=== PATIENT | female | born 1955 | race Caucasian/White ===

== ENCOUNTER 2020-06-26 13:31 | Outpatient (REF) | payer MEDICARE, SELFPAY ==
--- NOTE | 2020-06-26 13:35 | XR_ITS ---
EXAMINATION: AP BILATERAL KNEES STANDING. RIGHT KNEE. CLINICAL INFORMATION: Pain in right knee. COMPARISON: None TECHNIQUE: AP bilateral knees standing 1 view. Right knee 2 views FINDINGS: AP BILATERAL KNEE: There is a total left knee prosthesis in satisfactory alignment. Loss of medial and lateral compartment joint space is seen. RIGHT KNEE: There is loss of tricompartment joint space with mild lateral patellar spurring. There are no loose bodies, joint effusion or bony erosive changes. The soft tissues are normal. XR/XR knee RT 2V IMPRESSION: Mild degenerative changes right knee with periarticular spurring. No joint effusion or loose body seen. Total left knee arthroplasty in satisfactory alignment.
--- NOTE | 2020-06-26 13:35 | XR_ITS ---
EXAMINATION: AP BILATERAL KNEES STANDING. RIGHT KNEE. CLINICAL INFORMATION: Pain in right knee. COMPARISON: None TECHNIQUE: AP bilateral knees standing 1 view. Right knee 2 views FINDINGS: AP BILATERAL KNEE: There is a total left knee prosthesis in satisfactory alignment. Loss of medial and lateral compartment joint space is seen. RIGHT KNEE: There is loss of tricompartment joint space with mild lateral patellar spurring. There are no loose bodies, joint effusion or bony erosive changes. The soft tissues are normal. XR/XR knee standing BI IMPRESSION: Mild degenerative changes right knee with periarticular spurring. No joint effusion or loose body seen. Total left knee arthroplasty in satisfactory alignment.
== END 2020-06-26 13:32 | disposition home or self-care (01) ==
LOC: HO.XRAY 13:31
PROVIDERS: PCP Internal Medicine; Referring Provider Internal Medicine; Visit Provider Orthopaedic Surgery
DX: M17.11 Unilateral primary osteoarthritis, right knee (principal); M25.561 Pain in right knee
CPT/HCPCS: 20610; 73560; 73565; 99202; 99204; 99212; J1040

== ENCOUNTER → 2020-07-31 09:48 | Outpatient (BNVA) | payer MEDICARE, SELFPAY | PROVIDERS: Visit Provider Orthopaedic Surgery | DX: M17.11 Unilateral primary osteoarthritis, right knee (principal); I10 Essential (primary) hypertension | CPT/HCPCS: 99212 ==

== ENCOUNTER 2020-08-29 09:02 | Outpatient (REF) | payer MEDICARE, SELFPAY ==
--- NOTE | 2020-08-29 09:39 | ECG_ITS ---
Test Reason : CP Blood Pressure : / mmHG Vent. Rate : 063 BPM Atrial Rate : 063 BPM P-R Int : 198 ms QRS Dur : 080 ms QT Int : 430 ms P-R-T Axes : 049 021 016 degrees QTc Int : 440 ms Sinus rhythm with sinus arrhythmia with occasional Premature ventricular complexes Otherwise normal ECG No previous ECGs available Referred By: Delbert Pace Electronically Signed By:SERGIO DILLARD
[2020-08-29 10:11] LABS: MANUAL DIFF FLAG NO
[2020-08-29 10:23] LABS: Basophils Absolute Auto 0.1 X10*3/uL (0.0-0.2); Basophils Percent Auto 1.1 % (0-2); Eosinophils Absolute Auto 0.2 X10*3/uL (0.0-0.4); Eosinophils Percent Auto 2.1 % (0-4); Hematocrit 38.8 % (37-47); Hemoglobin 12.8 g/dl (12.0-16.0); Imm Gran Abs Auto 0.04 X10*3/uL (0.00-0.03); Imm Gran Pct Auto 0.5 % (0.0-0.4); Lymphocytes Absolute Auto 1.8 X10*3/uL (1.2-4.9); Lymphocytes Percent Auto 23.5 % (20-40); Mean Corpuscular Hemoglobin 32.2 pg (27.0-33.0); Mean Corpuscular Volume 97.5 fL (80-98); Mean Platelet Volume 10.2 fL (9.4-12.3); Monocytes Absolute Auto 0.8 X10*3/uL (0.1-1.2); Monocytes Percent Auto 10.1 % (2-11); Neutrophils Absolute Auto 4.7 X10*3/uL (2.0-8.3); Neutrophils Percent Auto 62.7 % (45-73); Platelet Count 306 X10*3/uL (160-400); Red Blood Count 3.98 X10*6/uL (4.20-5.50); Red Cell Distribution Width 12.5 % (11.0-16.0); White Blood Count 7.6 X10*3/uL (4.8-10.8)
[2020-08-29 10:42] LABS: Anion Gap 12 (12-20); Blood Urea Nitrogen 18 mg/dL (9-16); Calcium 9.7 mg/dL (8.4-10.2); Carbon Dioxide 29 mmol/L (22-29); Chloride 104 mmol/L (96-108); Estimated Glomerular Filt Rate > 60; Glucose Random 91 mg/dL (60-115); Potassium 4.7 mmol/l (3.3-5.1); Sodium 140 mmol/L (135-145)
== END 2020-08-29 09:03 | disposition home or self-care (01) ==
LOC: HO.LAB 09:02
PROVIDERS: PCP Internal Medicine; Visit Provider Orthopaedic Surgery
DX: Z01.810 Encounter for preprocedural cardiovascular examination (principal); Z01.812 Encounter for preprocedural laboratory examination; R07.9 Chest pain, unspecified
CPT/HCPCS: 36415; 80048; 85025; 93005

== ENCOUNTER → 2020-09-19 13:14 | Outpatient (BNVA) | payer MEDICARE, SELFPAY | PROVIDERS: PCP Internal Medicine; Visit Provider Physician Assistant | DX: M17.11 Unilateral primary osteoarthritis, right knee (principal) | CPT/HCPCS: 99212 ==

== ENCOUNTER 2020-09-24 06:09 | Inpatient (IN) | payer MEDICARE, SELFPAY ==
[2020-09-20 11:26] VITALS: BMI 29.6
--- NOTE | 2020-09-20 11:56 | HO.ANESPROP2 ---
Documented by User: Shayla Quarlesney 09/21/20 11:38 HPI - Anesthesia Eval Consult details Narrative: 77yo F for R TKA PND during winter months. Taking mucinex with partial effect. PCP cleared [facility] Past Medical History Medical History Back pain CKD (chronic kidney disease), stage II Constipation Diarrhea Elevated cholesterol GERD (gastroesophageal reflux disease) Hypertension PONV (postoperative nausea and vomiting) Post-nasal drip Family History Family history of problems with anesthesia: No Surgical History Surgical History History of bunionectomy (~2017) History of pubovaginal sling History of total left knee replacement Hx of appendectomy Hx of colonoscopy Hx of hysterectomy History of Problems with Anesthesia: Yes (PONV with GA only, no problems after MAC or Spinal previously) Social History Social History Are you a primary care mgr to a significant other at home: No Do you presently have visiting nurse or other home services: No Alcohol intake: current Alcohol intake frequency: a few times a week Smoking Status: Never smoker Use of substances other than those prescribed or required for medical reasons: No Have you been hit, kicked, punched, or otherwise hurt by someone within the past year? If so, by whom?: No Advance Directives: No Advance Directives Information Provided: No Advance Directives on File: No Recently lost weight without trying: No Current occupational status: retired Current occupation: Right handed Narrative Narrative: No recent illness. No CP/SOB at rest. Activity limited to pain. Meds Allergies Allergy/AdvReac Type Severity Reaction Status Date / Time acetaminophen [From Percocet] Allergy Hives Verified 09/24/20 07:30 oxycodone [From Percocet] Allergy Hives Verified 09/24/20 07:30 Sulfa (Sulfonamide Allergy rash Verified 09/20/20 10:04 Antibiotics) Home Medications Medication Instructions Recorded Confirmed Type atorvastatin 40 mg tablet 40 mg PO DAILY 06/26/20 09/20/20 History hydrochlorothiazide 12.5 mg tablet 12.5 mg PO DAILY 06/26/20 09/20/20 History perwteyprppab-ksgsranfafnvb-LX ml PO NEEDED PRN 09/20/20 History [Mucinex Fast-Max Isai-GERONIMO (GG)] Exam Exam Date and Time: September 20, 2020 1156 Height,Weight and Vital Signs: Height 5 ft 1 in Weight 71.214 kg Vital Signs Pulse Rate 63 09/20/20 12:15 Respiratory Rate 16 09/20/20 12:15 Blood Pressure 130/63 09/20/20 12:15 Pulse Oximetry 97 09/20/20 12:15 Pulse Rate 63 09/20/20 12:15 Respiratory Rate 16 09/20/20 12:15 Blood Pressure 130/63 09/20/20 12:15 Pulse Oximetry 97 09/20/20 12:15 Pertinent Lab Results Pertinent Lab Results: Laboratory Tests 08/29/20 08/29/20 09:33 09:33 WBC 7.6 Hgb 12.8 Hct 38.8 Plt Count 306 Sodium 140 Potassium 4.7 Chloride 104 Carbon Dioxide 29 BUN 18 H Creatinine 0.71 Laboratory Tests 08/29/20 09:33 Estimated GFR > 60 Lab Results 09/20/20 09/20/20 Range/Units 12:30 12:55 Nasal Screen MRSA (PCR) NEGATIVE (Negative) Nasal S. aureus Screen NEGATIVE (Negative) Nasal MRSA/S.aureus Interp SEE NOTE Blood Type A Positive Antibody Screen NEGATIVE Narrative Narrative: EKG 07/2020: Sinus rhythm with sinus arrhythmia with occasional Premature ventricular complexes Otherwise normal ECG No previous ECGs available Airway Mallampati Class: III (Small mouth) TM Dist: >3cm Neck ROM: Full Loose/Missing/Broken Teeth: No Heart: RRR Lungs: CTAB Assessment and Plan Assessment Anesthesia Assessment: Anesthesia Plan Discussed and PAT Visit Documented by User: Claus Man MD 09/24/20 07:58 [facility] Past Medical History Medical History Back pain CKD (chronic kidney disease), stage II Constipation Diarrhea Elevated cholesterol GERD (gastroesophageal reflux disease) Hypertension PONV (postoperative nausea and vomiting) Post-nasal drip Surgical History Surgical History History of bunionectomy (~2017) History of pubovaginal sling History of total left knee replacement Hx of appendectomy Hx of colonoscopy Hx of hysterectomy Social History Social History Are you a primary care mgr to a significant other at home: No Do you presently have visiting nurse or other home services: No Alcohol intake: current Alcohol intake frequency: a few times a week Smoking Status: Never smoker Use of substances other than those prescribed or required for medical reasons: No Have you been hit, kicked, punched, or otherwise hurt by someone within the past year? If so, by whom?: No Advance Directives: No Advance Directives Information Provided: No Advance Directives on File: No Recently lost weight without trying: No Current occupational status: retired Current occupation: Right handed Meds Allergies Allergy/AdvReac Type Severity Reaction Status Date / Time acetaminophen [From Percocet] Allergy Hives Verified 09/24/20 07:30 oxycodone [From Percocet] Allergy Hives Verified 09/24/20 07:30 Sulfa (Sulfonamide Allergy rash Verified 09/20/20 10:04 Antibiotics) Home Medications Medication Instructions Recorded Confirmed Type atorvastatin 40 mg tablet 40 mg PO DAILY 06/26/20 09/20/20 History hydrochlorothiazide 12.5 mg tablet 12.5 mg PO DAILY 06/26/20 09/20/20 History hqprldiukjtos-antwfjwjqwzty-TP ml PO NEEDED PRN 09/20/20 History [Mucinex Fast-Max Isai-GERONIMO (GG)] Assessment and Plan Assessment Anesthesia Assessment: Anesthesia Plan Discussed, PAT Visit and Chart Reviewed Final Anesthetic Review NPO: Yes ASA Class: III Final Preanesthetic Review: No Changes in Pt Med Stat, Meds/Allgs Chart Reviewed, Consent Obtained/Reviewed and Anes Risks/Benef Reviewed Patient Risk: Intermediate Anesthetic Plan Anesthetic Plan: MAC:, Spinal and Regional Block Disposition: Standard PACU
[2020-09-20 12:15] VITALS: BP 130/63; PULSE 63; RESP 16; O2SAT 97
[2020-09-20 14:33] LABS: MRSA Nasal PCR NEGATIVE (Negative); SA Nasal PCR NEGATIVE (Negative)
[2020-09-24] VITALS (12 sets, daily range): BP systolic 91–146; BP diastolic 41–63; PULSE 59–100; RESP 16–19; TEMP 36.1–37.4; O2SAT 91–99
[2020-09-24] MEDS: Gabapentin 600 MG TABLET PO (06:40)
[2020-09-24 06:42] LABS: COVID-19 Test Negative (Negative)
[2020-09-24] MEDS: ceFAZolin Sodium/Dextrose,Iso 2 GM/50 ML PIGGYBACK IV ×2 (06:55→14:16)
[2020-09-24] MEDS: Lactated Ringers 1,000 ML 100 ML IVCONT (07:02)
--- NOTE | 2020-09-24 07:42 | MHC.SHP ---
Pre-Procedural Eval Section A The patient is an INPATIENT: No Changes since office visit: No Cold of Flu in the past 2 weeks, No New Medical Problems, No Changes in Medication and No Patient answered all questions The History & Physical has been completed within 30 days and I have reviewed it.: Yes Section B Chief Complaint: S/P TOTAL KNEE REPLACEMENT Allergies: Allergies Allergy/AdvReac Type Severity Reaction Status Date / Time acetaminophen [From Percocet] Allergy Hives Verified 09/24/20 07:30 oxycodone [From Percocet] Allergy Hives Verified 09/24/20 07:30 Sulfa (Sulfonamide Allergy rash Verified 09/20/20 10:04 Antibiotics) Plan I have reviewed the history and physical and performed a pertinent physical examination on my patient. No changes have occurred unless specified.
--- NOTE | 2020-09-24 09:10 | PM.PRCOR ---
Brief Operative Note Date of procedure: 09/24/20 Pre-op diagnosis: OA RIGHT KNEE Post-op diagnosis: same Procedure: RIGHT TKA Anesthesia: regional and spinal Surgeon: Delbert Pace Estimated blood loss (mL): 25 Condition: stable Disposition: PACU
--- NOTE | 2020-09-24 11:29 | PM.IMCN ---
History of Present Illness Data of Consult Service Date: 09/24/20 <JAYLON Gonsalves - Last Filed: 09/24/20 11:38> Requesting physician: Selma Mann <JAYLON Gonsalves - Last Filed: 09/24/20 11:38> Primary Care Provider: Malena Dugan MD <JAYLON Gonsalves - Last Filed: 09/24/20 11:38> HPI Reason for consult: Medical management <JAYLON Gonsalves - Last Filed: 09/24/20 11:38> This is 7-year-old female with history of hypertension, dyslipidemia, osteoarthritis who presented for elective right total knee arthroplasty. The hospitalists were asked to see her in consultation for medical management. Patient is observed sitting in bed comfortably. She has no specific complaints at this time. She denies any chest pain, shortness of breath, abdominal pain, nausea, vomiting. <JAYLON Gonsalves - Last Filed: 09/24/20 11:38> Review of Systems Review of Systems: Yes all other systems are reviewed and are negative <JAYLON Gonsalves - Last Filed: 09/24/20 11:38> Constitutional: Constitutional: Denies chills and Denies fever(s) <JAYLON Gonsalves - Last Filed: 09/24/20 11:38> Cardiovascular: Cardiovascular: Denies chest pain <JAYLON Gonsalves - Last Filed: 09/24/20 11:38> Respiratory: Respiratory: Denies cough <JAYLON Gonsalves - Last Filed: 09/24/20 11:38> Gastrointestinal: Gastrointestinal: Denies abdominal pain <JAYLON Gonsalves - Last Filed: 09/24/20 11:38> [facility] Medical History: Medical History Back pain CKD (chronic kidney disease), stage II Elevated cholesterol GERD (gastroesophageal reflux disease) Hypertension PONV (postoperative nausea and vomiting) Post-nasal drip <JAYLON Gonsalves - Last Filed: 09/24/20 11:38> Family History: Family History Father Heart disease <JAYLON Gonsalves - Last Filed: 09/24/20 11:38> Family history: reviewed and not pertinent <JAYLON Gonsalves - Last Filed: 09/24/20 11:38> Surgical History: Surgical History History of bunionectomy (~2017) History of pubovaginal sling History of total left knee replacement Hx of appendectomy Hx of colonoscopy Hx of hysterectomy <JAYLON Gonsalves - Last Filed: 09/24/20 11:38> Social History: Social History Household Members: Spouse Housing: House Are you a primary home care coordinator to a significant other at home: No Do you presently have visiting nurse or other home services: No Alcohol intake: current Alcohol intake frequency: a few times a week Smoking Status: Never smoker Smoked in Last 30 Days: No Patient Interested in Nicotine Replacement: No Patient Given Instructions on How to Stop Smoking: No Use of substances other than those prescribed or required for medical reasons: No Currently Displaying Signs/Symptoms of Drug Intoxication Withdrawal: No Any prior treatment program specific to substance use: No Have you been hit, kicked, punched, or otherwise hurt by someone within the past year? If so, by whom?: No Do you feel safe in your current relationship?: Yes Are you made to feel afraid or neglected: No Advance Directives: No Advance Directives Information Provided: No Advance Directives on File: No Do you have thoughts of harming others: None Do you have a plan to hurt others: No Plan Recently lost weight without trying: No service: No Current occupational status: retired Current occupation: Right handed <JAYLON Gonsalves - Last Filed: 09/24/20 11:38> Meds Allergies/Adverse reactions: Allergies Allergy/AdvReac Type Severity Reaction Status Date / Time acetaminophen [From Percocet] Allergy Hives Verified 09/24/20 07:30 oxycodone [From Percocet] Allergy Hives Verified 09/24/20 07:30 Sulfa (Sulfonamide Allergy rash Verified 09/20/20 10:04 Antibiotics) <JAYLON Gonsalves - Last Filed: 09/24/20 11:38> Home medications: Home Medications Medication Instructions Recorded Confirmed Type atorvastatin 40 mg tablet 40 mg PO DAILY 06/26/20 09/20/20 History hydrochlorothiazide 12.5 mg tablet 12.5 mg PO DAILY 06/26/20 09/20/20 History xxxyrqbdvfdpz-ihdflerohhkzj-KF ml PO NEEDED PRN 09/20/20 History [Mucinex Fast-Max Isai-GERONIMO (GG)] <JAYLON Gonsalves - Last Filed: 09/24/20 11:38> Physical Exam Vital Signs and Narrative: Vital Signs: Last Vital Signs Temp 97.3 F 09/24/20 10:37 Pulse 65 09/24/20 10:37 Resp 18 09/24/20 10:37 BP 132/63 09/24/20 10:37 Pulse Ox 97 09/24/20 10:37 Body Mass Index 29.6 <JAYLON Gonsalves - Last Filed: 09/24/20 11:38> Const: Nutritional Appearance: well nourished <JAYOLN Gonsalves - Last Filed: 09/24/20 11:38> Orientation/consciousness: patient oriented x3 <JAYLON Gonsalves - Last Filed: 09/24/20 11:38> HENMT: Head: Yes normocephalic and Yes atraumatic <JAYLON Gonsalves - Last Filed: 09/24/20 11:38> Eyes: Sclerae: sclerae normal <JAYLON Gonsalves Last Filed: 09/24/20 11:38> Chest: Chest palpation & inspection: normal inspection of the chest <JAYLON Gonsalves Last Filed: 09/24/20 11:38> Resp: Effort & Inspection: normal respiratory effort and no respiratory distress <JAYLON Gonsalves - Last Filed: 09/24/20 11:38> Auscultation: clear to auscultation bilaterally <JAYLON Gonsalves Last Filed: 09/24/20 11:38> Cardio: Rate: regular rate <JAYLON Gonsalves - Last Filed: 09/24/20 11:38> Rhythm: regular rhythm <JAYLON Gonsalves - Last Filed: 09/24/20 11:38> GI: Palpation (GI): Soft to palpation and nontender <JAYLON Gonsalves - Last Filed: 09/24/20 11:38> Skin: General skin exam: no rashes or lesions noted <JAYLON Gonsalves - Last Filed: 09/24/20 11:38> Neuro: General: patient oriented x3 <JAYLON Gonsalves - Last Filed: 09/24/20 11:38> Cranial nerves: Yes CN's II-XII intact bilaterally and Yes Bilaterally intact EOM present <JAYLON Gonsalves - Last Filed: 09/24/20 11:38> Extrem: Other: right knee wrapped - mary bandage; mechanical devices present b/l lower extremities <JAYLON Gonsalves - Last Filed: 09/24/20 11:38> Results Labs CBC and Chem 7: : 09/25/20 05:53 09/25/20 05:53 <JAYLON Gonsalves - Last Filed: 09/24/20 11:38> Labs: Laboratory Results - last 24 hr 09/24/20 06:15 COVID-19 ([facility]) Negative COVID-19 Clin Com See Note <JAYLON Gonsalves - Last Filed: 09/24/20 11:38> Assessment and Plan (1) Elevated cholesterol: Status: Acute <JAYLON Gonsalves - Last Filed: 09/24/20 11:38> (2) Hypertension: Status: Inactive <JAYLON Gonsalves - Last Filed: 09/24/20 11:38> This is a 77-year-old female with history of hypertension, dyslipidemia, arthritis who presents for elective right total knee arthroplasty s/p R TKA Management per Orthopedic Service Recommend following basic labs including CBC, BMP Hypertension BP on low side this morning will hold home HCTZ for now Monitor Blood pressure closely HLD Continue statin Thank you for allowing us to participate in the care of this patient. We will follow along with you. <JAYLON Gonsalves - Last Filed: 09/24/20 11:38>
--- NOTE | 2020-09-24 13:00 | OP_ITS ---
SURGEON: Delbert Pace MD PREOPERATIVE DIAGNOSIS: Osteoarthritis, right knee. POSTOPERATIVE DIAGNOSIS: Osteoarthritis, right knee. PROCEDURE PERFORMED: Right total knee arthroplasty - NexGen CR-Flex GSF, size E right femur, 5 x 10 mm monoblock tibial component, 32 mm monoblock patellar component. ESTIMATED BLOOD LOSS: COMPLICATIONS: ANESTHESIA: ASSISTANTS: JAYLON Hayes. SPECIMENS: CLINICAL NOTE: This lady has had ongoing problem with osteoarthritis involving her knee. She has failed nonoperative management. Therefore, after explaining the risks, benefits, and alternatives and answering all the questions, it was mutually agreed upon to carry out the following procedure. DESCRIPTION OF PROCEDURE: Under a regional and spinal anesthetic, the patient was placed supine on the operating table. Pneumatic tourniquet cuff was placed around the upper right thigh, inflated to 300 mmHg at the beginning of the case. The right knee was then prepped and draped in standard fashion with the right leg free. Surgical time-out was then performed. The patient was identified, procedure confirmed, site confirmed. Medical analogy and history reviewed. Preoperative antibiotics were given. Standard DVT prophylaxis was in place. Tranexamic acid was given as well. All other items were discussed and agreed upon. A standard midline incision of the knee was carried out, taken down through subcutaneous tissues. Hemostasis was achieved along the way using electrocautery. A medial parapatellar arthrotomy in a subvastus technique was then performed. The patella was retracted to lateral gutter. The soft tissues were elevated over the anterior aspect of the femur. At the level of the tibia, soft tissue was elevated medially with portion of the meniscus excised and elevated soft tissues, protecting the medial-sided soft tissues. Similarly on the lateral side, portion of the fat pad, portion of the meniscus excised, and the soft tissue elevated protecting the lateral-sided soft tissues. The ACL was resected. We turned our attention to the femur. Standard intramedullary hole to the femur was carried out. Cutting guide was set for 5 degrees of valgus standard cut. Surface was resected flat. Attempt was made to size the femur . Therefore, we turned our attention to the tibia. The extramedullary guide was used in standard fashion, referencing the tibial tubercle, subcutaneous port of the tibia, and the middle of the ankle. The slope was set. A minimal resection referencing the medial side was set. The surface was then resected flat. The remainder of the medial and lateral menisci were removed and we turned our attention back to the femur. Sizing guide was used in standard fashion, sized to a size E. 3 degree external rotation pins were set. The all-in-one cutting guide was centered over the distal cut and the pins. It was held in place and following this, the anterior and anterior chamfer, posterior and posterior chamfer, and patellar recess cuts were all made. The lug holes were made. The cutting guide was removed. All the bony fragments were removed. The tibia was then sized to a size 5 and it was aligned as extramedullary guide had been. It was held in place with pins. The 10 mm trial liner was put into place. trial of the size E right GSF femur was placed. The knee demonstrated excellent alignment, full extension, full flexion, stable mediolaterally at 0, 30, 60, and 90 degrees of flexion. Turning our attention to patella, the patella had soft tissue elevated circumferentially, it was resected flat. It sized to 32. Lug hole was made. The patella fit nicely. It tracked centrally and therefore the size E right CR-Flex GSF femur with a 5 x 10 mm monoblock tibial component and the 32 mm monoblock patellar component was selected and brought up on the table. The trial components were then all removed after the peg holes of the tibia were made. The tourniquet was let down. Total tourniquet time 43 minutes. The area of the lateral genicular artery was identified. There was no significant bleeding. It was then had the knee thoroughly irrigated. With the permanent components up on the table, the tibia, followed by the femur, followed by patella were all successfully press-fit into place. The knee demonstrated full extension, full flexion, was stable mediolaterally at 0, 30, 60, and 90 degrees of flexion and the patella tracked centrally. Therefore, we proceeded to closure. Wound was thoroughly irrigated. The extensor mechanism was closed with #2 Quill suture. Skin approximated using interrupted 2-0 Dexon. Skin was closed with blank. Sterile dressing was then applied. The patient was then transferred supine to the room bed and taken to the recovery room in good condition. Intraoperatively, a second unit of tranexamic acid was given at the time of closure. There was 25 mL blood loss. No intraop transfusions or complications. MD JOHANNA Powell/KRISTY / [id number]
[2020-09-24] MEDS: traMADoL HCL 50 MG TABLET PO ×2 (14:41→23:22)
[2020-09-24] MEDS: ondansetron HCL 4 MG/2 ML VIAL IVPUSH (14:50)
[2020-09-24] MEDS: 0.9 % Sodium Chloride Flush 3 ML SYRINGE IVFLUSH (16:36)
[2020-09-24] MEDS: Lactated Ringers 500 ML 50 ML IV (16:52)
[2020-09-24] MEDS: Morphine Sulfate 2 MG/ML CARTRIDGE IVPUSH (20:17)
[2020-09-24] MEDS: Acetaminophen 325 MG TABLET 650 MG PO (23:21)
[2020-09-25] VITALS (7 sets, daily range): BP systolic 135–171; BP diastolic 57–67; PULSE 90–96; RESP 16–20; TEMP 36.4–37.7; O2SAT 85–96
[2020-09-25 06:50] LABS: Anion Gap 14 (12-20); Blood Urea Nitrogen 15 mg/dL (9-16); Calcium 8.6 mg/dL (8.4-10.2); Carbon Dioxide 23 mmol/L (22-29); Chloride 103 mmol/L (96-108); Creatinine Clr Calc Pharmacy 67.4; Estimated Glomerular Filt Rate > 60; Glucose Fasting 121 mg/dL (60-99); Sodium 136 mmol/L (135-145)
[2020-09-25 06:54] LABS: Basophils Absolute Auto 0.1 X10*3/uL (0.0-0.2); Basophils Percent Auto 0.3 % (0-2); Eosinophils Percent Auto 0.2 % (0-4); Hematocrit 31.2 % (37-47); Hemoglobin 10.4 g/dl (12.0-16.0); Imm Gran Abs Auto 0.08 X10*3/uL (0.00-0.03); Imm Gran Pct Auto 0.5 % (0.0-0.4); Lymphocytes Absolute Auto 1.5 X10*3/uL (1.2-4.9); Lymphocytes Percent Auto 10.3 % (20-40); MANUAL DIFF FLAG SCAN; Mean Corpuscular HGB Conc 33.3 g/dl (31.0-35.0); Mean Corpuscular Hemoglobin 32.1 pg (27.0-33.0); Mean Corpuscular Volume 96.3 fL (80-98); Mean Platelet Volume 10.1 fL (9.4-12.3); Monocytes Percent Auto 13.3 % (2-11); Neutrophils Percent Auto 75.4 % (45-73); Platelet Count 277 X10*3/uL (160-400); Red Blood Count 3.24 X10*6/uL (4.20-5.50); Red Cell Distribution Width 12.7 % (11.0-16.0); SCAN SMEAR FLAG 1; White Blood Count 14.6 X10*3/uL (4.8-10.8)
--- NOTE | 2020-09-25 07:00 | XR_ITS ---
EXAMINATION: XR KNEE, RIGHT CLINICAL INFORMATION: Status post total knee arthroplasty. COMPARISON: Standing AP knees and right knee radiographs 06/26/2020 TECHNIQUE: AP and lateral views of the right knee are obtained portably. FINDINGS: There has been total knee arthroplasty. The hardware is intact. There is no fracture or dislocation. There is suprapatellar effusion, subcutaneous emphysema, and overlying skin blank as expected. XR/XR knee RT 2V IMPRESSION: Status post right knee arthroplasty.
--- NOTE | 2020-09-25 07:42 | PM.PNORT ---
Subjective Subjective Date of Service: 09/25/20 Interval history: POD1 s/p RTKA pt. resting comfortably in bed. Pain is moderate. Patient has gotten out of bed to use the bathroom. No overnight events. Denies chest pain, SOB, abd pain. Physical Exam Vital Signs: Vital Signs: Last Vital Signs Temp 98.9 F 09/25/20 07:14 Pulse 93 09/25/20 07:14 Resp 18 09/25/20 07:14 BP 154/58 H 09/25/20 07:14 Pulse Ox 91 L 09/25/20 07:14 Body Mass Index 29.6 Const: General: cooperative, healthy appearing and no acute distress Resp: Effort & Inspection: normal respiratory effort and able to speak in complete sentences Cardio: Rate: regular rate Peripheral pulses: Peripheral pulses 2+ throughout GI: Palpation (GI): Soft to palpation Skin: Lesions: no lesions Rashes: no rashes Extrem: Other: No ecchymosis, redness, or drainage. Bandage is clean dry and intact. Calf is supple. NVI Progress Note: A&P Fall Risk Details Current Medications: Current Medications Generic Name Dose Route Start Last Admin Trade Name Freq PRN Reason Stop Dose Admin Acetaminophen 650 mg 09/24/20 10:48 09/24/20 23:21 Acetaminophen 325 Mg Tablet PO 650 mg Q6H PRN Administration Pain, Mild (Pain Scale 1-3) Aspirin 325 mg 09/25/20 08:00 Aspirin 325 Mg Tablet PO BID [facility] Atorvastatin Calcium 40 mg 09/25/20 21:00 Atorvastatin Calcium 40 Mg Tablet PO BEDTIME [facility] Ketorolac Tromethamine 15 mg 09/24/20 10:48 Ketorolac Tromethamine 15 Mg/Ml Vial IVPUSH Q6H PRN Pain, Mild (Pain Scale 1-3) Morphine Sulfate 2 mg 09/24/20 10:48 09/24/20 20:17 Morphine Sulfate 2 Mg/Ml Cartridge IVPUSH 2 mg Q2H PRN Administration Pain, Severe (Pain Scale 7-10) Naloxone HCl 0.2 mg 09/24/20 10:48 Naloxone Hcl 0.4 Mg/Ml Vial IVPUSH Q2M PRN Excessive sedation or RR < 8 Ondansetron HCl 4 mg 09/24/20 10:48 09/24/20 14:50 Ondansetron Hcl 4 Mg/2 Ml Vial IVPUSH 4 mg Q8H PRN Administration Nausea and Vomiting Senna 17.2 mg 09/24/20 10:48 Sennosides 8.6 Mg Tablet PO BEDTIME PRN Constipation Sodium Chloride 3 ml 09/24/20 16:00 09/24/20 22:32 0.9 % Sodium Chloride Flush 3 Ml Syringe IVFLUSH Not Given QSHIFT MARIBEL Tramadol HCl 50 mg 09/24/20 10:48 09/24/20 23:22 Tramadol Hcl 50 Mg Tablet PO 50 mg Q4H PRN Administration Pain, Mild (Pain Scale 1-3) Time Spent With Patient Time: Total time spent is greater than 50% in coordination of care (as documented) at patient's floor/unit and/or counseling patient: Time with patient: less than 15 minutes
[2020-09-25] MEDS: Aspirin 325 MG TABLET PO ×2 (08:05→21:20)
[2020-09-25] MEDS: oxyCODONE HCl Immed Release 5 MG TABLET 10 MG PO ×3 (08:05→21:22)
[2020-09-25] MEDS: 0.9 % Sodium Chloride Flush 3 ML SYRINGE IVFLUSH ×3 (08:07→21:22)
[2020-09-25 08:10] LABS: SLIDE REVIEW VERIFIED
--- NOTE | 2020-09-25 12:48 | MHC.CM.PN ---
SPOKE WITH PTSJia MCALLISTER WHO EDXPLAINS THAT PT HAD NO SERVICES PRIOR TO ADMISSION AND HE IS UNCERTAIN AT THIS TIME WHAT SERVICES WILL BE NEEDED WHEN DCD ..DC PLAN PLAN PENDING PT MATTHEW
--- NOTE | 2020-09-25 14:07 | P.PNIM_ITS ---
Subjective Subjective Date of Service: 09/25/20 Interval History: Patient feels better this morning got little lightheaded when she stood up, denies chest pain, no shortness of breath, hematocrit dropped but stable,c/o knee pain . ROS General no headache , mild lightheadedness,no dizziness no fever chills. CVS no chest pain, no palpitation. Respiratory no cough , no shortness of breath Gastrointestinal no nausea, no vomiting, no abdominal pain Physical Exam Vital Signs: Vital Signs: Last Vital Signs Temp 97.5 F 09/25/20 12:00 Pulse 90 09/25/20 12:00 Resp 16 09/25/20 12:00 BP 171/67 H 09/25/20 12:00 Pulse Ox 93 09/25/20 12:00 Body Mass Index 29.6 General sitting on chair no acute distress. Neck is supple no JVD. CVS regular rate rhythm, Respiratory lungs clear to auscultation, no respiratory distress, no wheeze, no rhonchi. Gastrointestinal abdomen soft, nontender, bowel sounds audible, no guarding , no rigidity. Extremities right knee dressing in place Neuro nonfocal ,speech clear. Skin no rash Objective Data Current Medications Generic Name Dose Route Start Last Admin Trade Name Freq PRN Reason Stop Dose Admin Acetaminophen 650 mg 09/24/20 10:48 09/24/20 23:21 Acetaminophen 325 Mg Tablet PO 650 mg Q6H PRN Administration Pain, Mild (Pain Scale 1-3) Aspirin 325 mg 09/25/20 08:00 09/25/20 08:23 Aspirin 325 Mg Tablet PO Not Given BID [facility] Atorvastatin Calcium 40 mg 09/25/20 21:00 Atorvastatin Calcium 40 Mg Tablet PO BEDTIME [facility] Ketorolac Tromethamine 15 mg 09/24/20 10:48 Ketorolac Tromethamine 15 Mg/Ml Vial IVPUSH Q6H PRN Pain, Mild (Pain Scale 1-3) Morphine Sulfate 2 mg 09/24/20 10:48 09/24/20 20:17 Morphine Sulfate 2 Mg/Ml Cartridge IVPUSH 2 mg Q2H PRN Administration Pain, Severe (Pain Scale 7-10) Naloxone HCl 0.2 mg 09/24/20 10:48 Naloxone Hcl 0.4 Mg/Ml Vial IVPUSH Q2M PRN Excessive sedation or RR < 8 Ondansetron HCl 4 mg 09/24/20 10:48 09/24/20 14:50 Ondansetron Hcl 4 Mg/2 Ml Vial IVPUSH 4 mg Q8H PRN Administration Nausea and Vomiting Oxycodone HCl 10 mg 09/25/20 07:47 09/25/20 08:05 Oxycodone Hcl Immed Release 5 Mg Tablet PO 10 mg Q4H PRN Administration Pain, Moderate (Pain Scale 4-6 Senna 17.2 mg 09/24/20 10:48 Sennosides 8.6 Mg Tablet PO BEDTIME PRN Constipation Sodium Chloride 3 ml 09/24/20 16:00 09/25/20 08:07 0.9 % Sodium Chloride Flush 3 Ml Syringe IVFLUSH 3 ml QSHIFT MARIBEL Administration Labs CBC & Chem 7: 09/25/20 05:53 09/25/20 05:53 Assessment and Plan (1) Primary osteoarthritis of right knee: Status: Acute (2) Hypertension: Status: Acute (3) Elevated cholesterol: Status: Acute Assessment and Plan: 77-year-old female with history of hypertension, dyslipidemia, arthritis who presents for elective right total knee arthroplasty s/p R TKA postoperative day 1 Persistent pain but stable, hematocrit dropped from 38-31.2 likely dilutional, patient denies chest pain or shortness of breath mild lightheadedness will follow CBC, add iron supplement Will encourage incentive spirometry out of bed to chair and add stool softeners continue as needed senna Hypertension BP on low side post surgery currently trending up will resume home medication and follow BP closely HLD Continue statin DVT prophylaxis on aspirin 325 b.i.d.
[2020-09-25] MEDS: hydroCHLOROthiazide 12.5 MG TABLET PO (14:36)
--- NOTE | 2020-09-25 16:07 | HO.POSTANES ---
Post Anesthesia Evaluation Post Anesthesia Evaluation Vital Signs: Vital Signs Temp Pulse Resp BP Pulse Ox 09/25/20 14:43 99 F 95 16 159/57 H 93 09/25/20 12:00 97.5 F 90 16 171/67 H 93 09/25/20 10:40 93 154/58 H 91 L 09/25/20 07:14 98.9 F 93 18 154/58 H 91 L 09/25/20 06:04 96 Anesthesia: Spinal Mental Status: Awake Pain Control: Satisfactory Nausea/Vomiting: None Hydration: Adequate Anesthesia-Related Issues: No Anes. Related Issues
[2020-09-25] MEDS: Ferrous Sulfate 324 MG TABLET.DR PO (17:04)
[2020-09-25] MEDS: Atorvastatin Calcium 40 MG TABLET PO (21:21)
[2020-09-25] MEDS: Docusate Sodium 100 MG CAPSULE PO (21:21)
[2020-09-26] VITALS: BP 134/53; PULSE 89; RESP 20; TEMP 36.6; O2SAT 92
[2020-09-26 04:00] VITALS: BP 138/62; PULSE 95; RESP 18; TEMP 37.2; O2SAT 91
[2020-09-26 06:51] LABS: Basophils Absolute Auto 0.1 X10*3/uL (0.0-0.2); Basophils Percent Auto 0.5 % (0-2); Eosinophils Absolute Auto 0.2 X10*3/uL (0.0-0.4); Eosinophils Percent Auto 1.1 % (0-4); Hematocrit 30.5 % (37-47); Hemoglobin 10.1 g/dl (12.0-16.0); Imm Gran Abs Auto 0.08 X10*3/uL (0.00-0.03); Imm Gran Pct Auto 0.6 % (0.0-0.4); Lymphocytes Percent Auto 7.3 % (20-40); MANUAL DIFF FLAG SCAN; Mean Corpuscular HGB Conc 33.1 g/dl (31.0-35.0); Mean Corpuscular Hemoglobin 31.9 pg (27.0-33.0); Mean Corpuscular Volume 96.2 fL (80-98); Monocytes Absolute Auto 1.8 X10*3/uL (0.1-1.2); Monocytes Percent Auto 12.6 % (2-11); Neutrophils Absolute Auto 11.2 X10*3/uL (2.0-8.3); Neutrophils Percent Auto 77.9 % (45-73); Platelet Count 257 X10*3/uL (160-400); Red Blood Count 3.17 X10*6/uL (4.20-5.50); Red Cell Distribution Width 12.7 % (11.0-16.0); SCAN SMEAR FLAG 1; White Blood Count 14.3 X10*3/uL (4.8-10.8)
[2020-09-26 07:06] LABS: Anion Gap 12 (12-20); Blood Urea Nitrogen 11 mg/dL (9-16); Calcium 8.6 mg/dL (8.4-10.2); Carbon Dioxide 28 mmol/L (22-29); Chloride 97 mmol/L (96-108); Creatinine Clr Calc Pharmacy 67.4; Estimated Glomerular Filt Rate > 60; Glucose Fasting 118 mg/dL (60-99); Potassium 3.8 mmol/l (3.3-5.1); Sodium 133 mmol/L (135-145)
[2020-09-26 07:41] LABS: SLIDE REVIEW VERIFIED
[2020-09-26 08:00] VITALS: BP 140/61; PULSE 99; RESP 17; TEMP 36.9; O2SAT 90
[2020-09-26] MEDS: Aspirin 325 MG TABLET PO (08:24)
[2020-09-26] MEDS: hydroCHLOROthiazide 12.5 MG TABLET PO (08:24)
[2020-09-26] MEDS: oxyCODONE HCl Immed Release 5 MG TABLET 10 MG PO (08:25)
[2020-09-26] MEDS: Docusate Sodium 100 MG CAPSULE PO (08:25)
[2020-09-26] MEDS: Ferrous Sulfate 324 MG TABLET.DR PO (08:25)
[2020-09-26] MEDS: 0.9 % Sodium Chloride Flush 3 ML SYRINGE IVFLUSH (08:26)
[2020-09-26 09:42] VITALS: BP 140/61; PULSE 99; O2SAT 90
--- NOTE | 2020-09-26 10:00 | P.DS_ITS ---
DS: Providers Provider Date of Service: 09/26/20 Date of admission: 09/24/20 06:09 Primary care physician: Malena Dugan MD Consults: 09/24/20 10:48 Consult to Hospitalist Routine Consulting Provider: Hospitalist Reason for consultation: Medical Management DS: Diagnosis Discharge Diagnosis (1) Status post right knee replacement: Status: Acute Problem details: Ms. Sheth is a 77 yo female who presented to the office with ongoing right knee pain. She was found to have OA of the right knee and had failed all conservative treatment. She continued to have difficulty with ambulation and daily activities; therefore she consented to move forward with Right total knee arthroplasty. DS: Medications Discharge Medications Home Medications: Home Medications Medication Instructions Recorded Confirmed atorvastatin 40 mg tablet 40 mg PO DAILY 06/26/20 09/20/20 hydrochlorothiazide 12.5 mg tablet 12.5 mg PO DAILY 06/26/20 09/20/20 [id number] ml PO NEEDED PRN 09/20/20 [Mucinex Fast-Max Isai-GERONIMO (GG)] DS: Summary Hospital Course Hospital Course: The patient underwent a successful right knee arthroplasty, was transferred to PACU and then to the floor to recover. During their stay, their vitals were stable, afebrile at 98.4. Labs were unremarkable, H/H 10.0/30.5. POD 1 the patient was started on Asprin for DVT ppx, they also received P.T. services twice a day. Prior to discharge, their dressing was changed, incision clean dry and intact, new Aquacel dressing applied and the plan was to be discharged home with VNA services. Time Spent with Patient Time attestation: The patient underwent a successful (), was transferred to PACU and then to the floor to recover. During their stay, their vitals were stable, a febrile at (). Labs were unremarkable, H/H (). POD 1 () was started on () for DVT ppx, they also received (y) services twice a day. Prior to discharge, their dressing was changed, incision clean dry and intact, new Aquacel dressing applied and the plan was to be discharged home with VNA services. 1st post op plan Total time spent providing and/or coordinating discharge services: Discharge coordination time: Greater than 30 minutes (30 mins) Physical Exam Vital Signs: Vital Signs: Last Vital Signs Temp 98.4 F 09/26/20 08:00 Pulse 99 09/26/20 09:42 Resp 17 09/26/20 08:00 BP 140/61 H 09/26/20 09:42 Pulse Ox 90 L 09/26/20 09:42 Body Mass Index 29.6 DS: Data Data Completed and Pending Pending studies at discharge: Pending at discharge 09/24/20 08:51 Surgical [PTH] Routine Labs on day of discharge: Laboratory Tests 09/20/20 09/20/20 09/24/20 12:30 12:55 06:15 WBC RBC Hgb Hct MCV MCH MCHC RDW Plt Count MPV Immature Gran % (Auto) Neut % (Auto) Lymph % (Auto) [place] % (Auto) Eos % (Auto) Baso % (Auto) Lymph # (Auto) [place] # (Auto) Eos # (Auto) Baso # (Auto) Abs Immat Gran (auto) Absolute Neuts (auto) Absolute Nucleated RBC Nucleated RBC % (auto) Smear Tech's Comments Sodium Potassium Chloride Carbon Dioxide Anion Gap BUN Creatinine Estim Creat Clear Calc Estimated GFR Fasting Glucose Calcium Nasal Screen MRSA (PCR) NEGATIVE Nasal S. aureus Screen NEGATIVE Nasal MRSA/S.aureus Interp SEE NOTE COVID-19 ([facility]) Negative COVID-19 Clin Com See Note Blood Type A Positive Antibody Screen NEGATIVE 09/25/20 09/25/20 09/26/20 05:53 05:53 06:07 WBC 14.6 H 14.3 H RBC 3.24 L 3.17 L Hgb 10.4 L 10.1 L Hct 31.2 L 30.5 L MCV 96.3 96.2 MCH 32.1 31.9 MCHC 33.3 33.1 RDW 12.7 12.7 Plt Count 277 257 MPV 10.1 10.0 Immature Gran % (Auto) 0.5 H 0.6 H Neut % (Auto) 75.4 H 77.9 H Lymph % (Auto) 10.3 L 7.3 L [place] % (Auto) 13.3 H 12.6 H Eos % (Auto) 0.2 1.1 Baso % (Auto) 0.3 0.5 Lymph # (Auto) 1.5 1.0 L [place] # (Auto) 2.0 H 1.8 H Eos # (Auto) 0.0 0.2 Baso # (Auto) 0.1 0.1 Abs Immat Gran (auto) 0.08 H 0.08 H Absolute Neuts (auto) 11.0 H 11.2 H Absolute Nucleated RBC 0.000 0.000 Nucleated RBC % (auto) 0.0 0.0 Smear Tech's Comments VERIFIED VERIFIED Sodium 136 Potassium 4.0 Chloride 103 Carbon Dioxide 23 Anion Gap 14 BUN 15 Creatinine 0.65 Estim Creat Clear Calc 67.4 Estimated GFR > 60 Fasting Glucose 121 H Calcium 8.6 D Nasal Screen MRSA (PCR) Nasal S. aureus Screen Nasal MRSA/S.aureus Interp COVID-19 ([facility]) COVID-19 [facility] Com Blood Type Antibody Screen 09/26/20 06:07 WBC RBC Hgb Hct MCV MCH MCHC RDW Plt Count MPV Immature Gran % (Auto) Neut % (Auto) Lymph % (Auto) [place] % (Auto) Eos % (Auto) Baso % (Auto) Lymph # (Auto) [place] # (Auto) Eos # (Auto) Baso # (Auto) Abs Immat Gran (auto) Absolute Neuts (auto) Absolute Nucleated RBC Nucleated RBC % (auto) Smear Tech's Comments Sodium 133 L Potassium 3.8 Chloride 97 Carbon Dioxide 28 Anion Gap 12 BUN 11 Creatinine 0.65 Estim Creat Clear Calc 67.4 Estimated GFR > 60 Fasting Glucose 118 H Calcium 8.6 Nasal Screen MRSA (PCR) Nasal S. aureus Screen Nasal MRSA/S.aureus Interp COVID-19 ([facility]) COVID-19 [facility] Com Blood Type Antibody Screen Discharge Plan Discharge Patient Disposition: Home Health Service Referrals: Delbert Pace MD [Physician] - Pamela Khan PA-C [Physician Integrity Manager] - (follow up on 10/10/20 at 1:45pm) Discharge Medications: New acetaminophen 325 mg Tablet 650 mg PO Q6H PRN (Reason: Pain, Mild (Pain Scale 1-3)) 30 Days Qty: 240 RF: 0 aspirin 325 mg Tablet 325 mg PO BID 14 Days Qty: 28 RF: 0 ferrous sulfate 324 mg (65 mg iron) Tablet,Delayed Release (Dr/Ec) 324 mg PO BIDWM 30 Days Qty: 60 RF: 0 oxycodone 10 mg tablet 10 mg PO Q4H PRN (Reason: Pain, Moderate (Pain Scale 4-6) 7 Days Qty: 42 RF: 0 docusate sodium 100 mg Capsule 100 mg PO BID 30 Days Qty: 60 RF: 0 Continued Mucinex Fast-Max Isai-GERONIMO (GG) 10-650-400 mg/20 mL Liquid PO NEEDED PRN (Reason: Cough) RF: 0 hydrochlorothiazide 12.5 mg tablet 12.5 mg PO DAILY RF: 0 atorvastatin 40 mg tablet 40 mg PO DAILY RF: 0 Discharge Orders: Discharge Order (Routine); Ordered 09/26/20 Ordered By: Selma Mann Diet: regular diet Activity on Discharge: Use cane or walker Stand Alone Forms: Patient Portal Discharge page Care Plan Goals: restore function of the rt knee Health Concerns: none Plan of Treatment: Physical Therapy for ROM 0-120, quad strength, gait training. Use walker for ambulation Limit stair climbing, No shower, No tub bath, No driving Continue anticoagulant Keep Aquacel dressing clean, dry and intact. Follow up with orthopedics in 2 weeks
--- NOTE | 2020-09-26 10:55 | MHC.CM.PN ---
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
--- NOTE | 2020-09-26 11:36 | P.PNIM_ITS ---
Subjective Subjective Date of Service: 09/26/20 Interval History: Patient complain of lightheadedness when she 1st stands up but gets better denied any other symptoms of chest pain shortness of breath no hematemesis no melena no other acute issues overnight. ROS General no headache , mild lightheadedness with standing,no dizziness, no fever chills. CVS no chest pain, no palpitation. Respiratory no cough , no shortness of breath Gastrointestinal no nausea, no vomiting, no abdominal pain Physical Exam Vital Signs: Vital Signs: Last Vital Signs Temp 98.4 F 09/26/20 08:00 Pulse 99 09/26/20 09:42 Resp 17 09/26/20 08:00 BP 140/61 H 09/26/20 09:42 Pulse Ox 90 L 09/26/20 09:42 Body Mass Index 29.6 General no acute distress. Neck is supple no JVD. CVS regular rate rhythm, Respiratory lungs clear to auscultation, no respiratory distress, no wheeze, no rhonchi. Gastrointestinal abdomen soft, nontender, bowel sounds audible, no guarding , no rigidity. Extremities right knee dressing in place, lower extremities with no edema Neuro nonfocal ,speech clear. Skin no rash Objective Data Current Medications Generic Name Dose Route Start Last Admin Trade Name Freq PRN Reason Stop Dose Admin Acetaminophen 650 mg 09/24/20 10:48 09/24/20 23:21 Acetaminophen 325 Mg Tablet PO 650 mg Q6H PRN Administration Pain, Mild (Pain Scale 1-3) Aspirin 325 mg 09/25/20 08:00 09/26/20 08:24 Aspirin 325 Mg Tablet PO 325 mg BID MARIBEL Administration Atorvastatin Calcium 40 mg 09/25/20 21:00 09/25/20 21:21 Atorvastatin Calcium 40 Mg Tablet PO 40 mg BEDTIME MARIBEL Administration Docusate Sodium 100 mg 09/25/20 21:00 09/26/20 08:25 Docusate Sodium 100 Mg Capsule PO 100 mg BID MARIBEL Administration Ferrous Sulfate 324 mg 09/25/20 17:00 09/26/20 08:25 Ferrous Sulfate 324 Mg Tablet.Dr PO 324 mg BIDWM MARIBEL Administration Hydrochlorothiazide 12.5 mg 09/25/20 14:25 09/26/20 08:24 Hydrochlorothiazide 12.5 Mg Tablet PO 12.5 mg DAILY MARIBEL Administration Protocol Ketorolac Tromethamine 15 mg 09/24/20 10:48 Ketorolac Tromethamine 15 Mg/Ml Vial IVPUSH Q6H PRN Pain, Mild (Pain Scale 1-3) Morphine Sulfate 2 mg 09/24/20 10:48 09/24/20 20:17 Morphine Sulfate 2 Mg/Ml Cartridge IVPUSH 2 mg Q2H PRN Administration Pain, Severe (Pain Scale 7-10) Naloxone HCl 0.2 mg 09/24/20 10:48 Naloxone Hcl 0.4 Mg/Ml Vial IVPUSH Q2M PRN Excessive sedation or RR < 8 Ondansetron HCl 4 mg 09/24/20 10:48 09/24/20 14:50 Ondansetron Hcl 4 Mg/2 Ml Vial IVPUSH 4 mg Q8H PRN Administration Nausea and Vomiting Oxycodone HCl 10 mg 09/25/20 07:47 09/26/20 08:25 Oxycodone Hcl Immed Release 5 Mg Tablet PO 10 mg Q4H PRN Administration Pain, Moderate (Pain Scale 4-6 Senna 17.2 mg 09/24/20 10:48 Sennosides 8.6 Mg Tablet PO BEDTIME PRN Constipation Sodium Chloride 3 ml 09/24/20 16:00 09/26/20 08:26 0.9 % Sodium Chloride Flush 3 Ml Syringe IVFLUSH 3 ml QSHIFT MARIBEL Administration Labs CBC & Chem 7: 09/26/20 06:07 09/26/20 06:07 Assessment and Plan (1) Hypertension: Status: Acute (2) Elevated cholesterol: Status: Acute (3) Status post right knee replacement: Problem details: Ms. Sheth is a 77 yo female who presented to the office with ongoing right knee pain. She was found to have OA of the right knee and had failed all conservative treatment. She continued to have difficulty with ambulation and daily activities; therefore she consented to move forward with Right total knee arthroplasty. Status: Acute (4) Primary osteoarthritis of right knee: Status: Acute Assessment and Plan: 77-year-old female with history of hypertension, dyslipidemia, arthritis who presents for elective right total knee arthroplasty s/p R TKA postoperative day 2 Good pain control, hematocrit dropped from 38-30.5 likely dilutional, postop pat ient denies chest pain or shortness of breath mild lightheadedness with ambulation, advised to continue iron supplement encourage incentive spirometry, recommend to take increase fiber and stool softe ners to avoid constipation Pain management and DVT prophylax as per Orthopedic surgery. Patient medically stable for discharge Hypertension BP improved continue hydrochlorothiazide. HLD Continue statin DVT prophylaxis on aspirin 325 b.i.d.
== END 2020-09-26 12:46 | disposition home health service (06) | DRG 470 ==
LOC: HO.SSSA 06:11 → HO.S3 09:45
PROVIDERS: Physician Assistant; Admitting Provider Orthopaedic Surgery; PCP Internal Medicine; Visit Provider Orthopaedic Surgery
PROC: 0SRC0JA Replacement of Right Knee Joint with Synthetic Substitute, Uncemented, Open Approach (ICD-10-PCS; CPT 27447; principal; 2020-09-24 07:30)
DX: M17.11 Unilateral primary osteoarthritis, right knee (principal); K21.9 Gastro-esophageal reflux disease without esophagitis; Z96.652 Presence of left artificial knee joint; Z20.822 Contact with and (suspected) exposure to COVID-19; E78.5 Hyperlipidemia, unspecified; I10 Essential (primary) hypertension; Z79.899 Other long term (current) drug therapy
CPT/HCPCS: 36415; 73560; 80048; 85025; 86850; 86900; 86901; 87635; 87640; 87641; 88305; 88311; 97110; 97116; 97161; 97530; C1776; J0131; J0690; J2270; J2370; J2405

== ENCOUNTER → 2020-10-10 13:44 | Outpatient (BNVA) | payer MEDICARE, SELFPAY | PROVIDERS: PCP Internal Medicine; Visit Provider Physician Assistant | DX: Z96.651 Presence of right artificial knee joint (principal) | CPT/HCPCS: 99212 ==

== ENCOUNTER → 2020-11-07 09:47 | Outpatient (BNVA) | payer MEDICARE, SELFPAY | PROVIDERS: PCP Internal Medicine; Visit Provider Orthopaedic Surgery | DX: Z47.1 Aftercare following joint replacement surgery (principal); Z96.651 Presence of right artificial knee joint | CPT/HCPCS: 99212 ==

== ENCOUNTER 2021-01-07 13:00 | Outpatient (RCR) | payer MEDICARE, SELFPAY ==
--- NOTE | 2020-10-25 12:47 | MHC.PT.EP ---
[facility] [place] Office [place] Office [place] Office [address] Wayne Cueva [address] [phone] F: [phone] F: [phone] F: [phone] F: [phone] Physical Therapy Plan of Care Date of Evaluation: 10/25/20 Date of Surgery: 09/24/20 Diagnosis: Presence of R TKR. Assessment: Pt is a 77 y/o female referred to PT s/p R TKR ODS: resulting in decreased tolerance and ability to perform ambulatory, standing and sitting tasks for duration as well as lifting objects of weight, rolling in bed, and performing LE dressing secondary to decreased hip and core strength, decreased trunk ROM as well as decreased posture, increased tissue tension, pelvic asymmetry and pain. Pt is deemed an appropriate candidate to receive skilled PT in order to address her physical limitations to improve her functional ability. Frequency and Duration: The patient will be seen 2 x / wk x 8 wks. Short Term Goals: In 1 week: initiate HEP with evidence of compliance. In 3 weeks: R knee flexion > 120 degrees achieved; initial: 80 In 4 weeks: full knee extension achieved; initial: 8 degrees flexion. Care Home Goals: In 8 week: negotiates flight of stairs with reciprocal fashion w/o compensation; initial: 1 at a time requires B UE support. In 8 weeks: Pt will be able to ambulate 1 mile with managed sx; initial: unable. Treatment Plan: Modalities to reduce pain, spasms and effusion. Manual therapy to restore motion and function. Therapeutic exercise to improve strength and flexibility. Neuromuscular re-education for posture and balance. Therapeutic activities to return to functional activities of daily living. Electronically signed by: Nicolasa Funez PTA Please sign and return to therapist. Thank you for your referral.
--- NOTE | 2021-01-07 17:26 | MHC.PT.DC ---
[facility] [place] Office [place] Office [place] Office [address] Wayne Cueva [address] [phone] F: [phone] F: [phone] F: [phone] F: [phone] Physical Therapy Discharge Report Diagnosis: Presence of R TKR. Date of Surgery: 09/24/20 Date of Evaluation: 11/26/20 Date of Discharge: 01/07/21 Treatments to Date: 19 Cancellations to Date: 0 No Shows to Date: 0 Discharge Status: Achieved Goals Improved Function Independent with HEP Discharge Summary: Sarah has been an active and motivated participant in her therapy in and out of the clinic and is in agreement with DC today. She has met therapeutic goals and is I with her home program. AROM: 2 - 120 Electronically signed by: Nahum Woods PT. Please sign and return to therapist. Thank you for your referral.
== END 2022-01-02 11:59 | disposition home or self-care (01) ==
LOC: HO.PTCHIC 13:00
PROVIDERS: Visit Provider Physician Assistant
DX: Z47.1 Aftercare following joint replacement surgery (principal); Z96.651 Presence of right artificial knee joint
CPT/HCPCS: 97110; 97112; 97116; 97140; 97150; 97161; 97530

== ENCOUNTER 2021-01-09 09:22 | Outpatient (REF) | payer MEDICARE, SELFPAY ==
--- NOTE | ~2021-01-09 | XR_ITS ---
EXAMINATION: KNEE X-RAY CLINICAL INFORMATION: Right knee pain. COMPARISON: Previous x-rays August 2020 and May 2020 TECHNIQUE: Standing AP view of both knees and standing lateral view of the right knee FINDINGS: Right: There is a 3 component right knee replacement in satisfactory position. No fracture, dislocation or x-ray evidence of loosening is seen. There is a joint effusion. Standing AP view of the left knee demonstrates a left knee replacement that appears unchanged. XR/XR knee standing BI IMPRESSION: Right knee: Satisfactory appearance of joint replacement. Joint effusion.
--- NOTE | ~2021-01-09 | XR_ITS ---
EXAMINATION: KNEE X-RAY CLINICAL INFORMATION: Right knee pain. COMPARISON: Previous x-rays August 2020 and May 2020 TECHNIQUE: Standing AP view of both knees and standing lateral view of the right knee FINDINGS: Right: There is a 3 component right knee replacement in satisfactory position. No fracture, dislocation or x-ray evidence of loosening is seen. There is a joint effusion. Standing AP view of the left knee demonstrates a left knee replacement that appears unchanged. XR/XR knee RT 2V IMPRESSION: Right knee: Satisfactory appearance of joint replacement. Joint effusion.
== END 2021-01-09 09:23 | disposition home or self-care (01) ==
LOC: HO.HOSX 09:22
PROVIDERS: Visit Provider Orthopaedic Surgery
DX: Z47.1 Aftercare following joint replacement surgery (principal); Z96.651 Presence of right artificial knee joint
CPT/HCPCS: 73560; 73565; Q3014

== ENCOUNTER → 2021-08-22 08:41 | Outpatient (BNVA) | payer MEDICARE, SELFPAY | PROVIDERS: PCP Internal Medicine; Visit Provider Orthopaedic Surgery | DX: M75.42 Impingement syndrome of left shoulder (principal) | CPT/HCPCS: 20610; 99212; J1100 ==

== ENCOUNTER 2021-09-26 10:00 | Outpatient (RCR) | payer MEDICARE, SELFPAY ==
--- NOTE | 2021-09-02 17:12 | MHC.PT.EP ---
[facility] [place] Office [place] Office [place] Office [address] Wayne Cueva [address] [phone] F: [phone] F: [phone] F: [phone] F: [phone] Physical Therapy Plan of Care Date of Evaluation: Date of Surgery: Diagnosis: L shoulder unspecified RTC tear Assessment: Pt is a 78 y/o RHD female referred to PT for eval and treat of L shoulder unspecified RTC tear resulting in decreased tolerance and ability for reaching her back and neck for hygiene and dressing, reaching high shelves, lifting objects of weight, as well as laying on her L side secondary to decreased L UE strength and ROM, increased shoulder tissue tension, decreased posture, and pain. Pt is deemed an appropriate candidate to receive skilled PT in order to address her physical limitations to improve her functional ability. Frequency and Duration: The patient will be seen 2 x / wk x 5 wks. Short Term Goals: Initiate HEP improve baseline pain with activity from 8/10 to < 5/10. Investigation Division Lieutenant Goals: I with HEP. Pt will be able to reach high shelves with managed sx. initial: 8/10 pain and difficulty. Pt will improve her SPADI score by at least 13 points on order to demonstrate meaningful functional improvement. improve L shoulder flexion MMT to at least 4+/5. Treatment Plan: Modalities to reduce pain, spasms and effusion. Manual therapy to restore motion and function. Therapeutic exercise to improve strength and flexibility. Neuromuscular re-education for posture and balance. Therapeutic activities to return to functional activities of daily living. Electronically signed by: Nahum Woods PT. Please sign and return to therapist. Thank you for your referral.
--- NOTE | 2021-09-26 10:59 | MHC.PT.DC ---
[facility] [place] [facility] [place] [facility] [place] [facility] [address] Wayne Cueva [address] [phone] F: [phone] F: [phone] F: [phone] F: [phone] Physical Therapy Discharge Report Diagnosis: L shoulder unspecified RTC tear Date of Surgery: Date of Evaluation: 09/02/21 Date of Discharge: 09/26/21 Treatments to Date: 8 Cancellations to Date: No Shows to Date: Discharge Status: Achieved Goals Improved Function Independent with HEP Patient Elected to Stop Discharge Summary: Sarah has been an active participant in her therapy in and out of the clinic for management of her shoulder pain; she has met her therapeutic goals and requests DC today as she is feeling much better of her Sx, is I with er HEP, and concerned about higher community transmission of COVID 19 at this time. Pt's SPADI questionnaire improved from 50% disability to 1%. Electronically signed by: Nahum Woods, PT, DPT. Please sign and return to therapist. Thank you for your referral.
== END 2021-09-26 11:00 | disposition home or self-care (01) ==
LOC: HO.PTCHIC 10:00
PROVIDERS: Visit Provider Orthopaedic Surgery
DX: M75.102 Unspecified rotator cuff tear or rupture of left shoulder, not specified as traumatic (principal)
CPT/HCPCS: 97110; 97140; 97150; 97161; 97530

== ENCOUNTER 2021-10-14 08:19 | Outpatient (REF) | payer MEDICARE, SELFPAY ==
--- NOTE | ~2021-10-14 | XR_ITS ---
EXAMINATION: KNEE X-RAY CLINICAL INFORMATION: Pain COMPARISON: Previous x-ray most recent December 2020 TECHNIQUE: Standing AP view of both knees and lateral and sunrise view of the right knee FINDINGS: Right: There is a right knee replacement in satisfactory position. No fracture, dislocation or x-ray evidence of loosening is seen. There is no joint effusion. AP view of the left knee demonstrates a left knee replacement in satisfactory position. XR/XR knee standing BI IMPRESSION: Satisfactory appearance of right knee replacement. Left knee replacement.
--- NOTE | ~2021-10-14 | XR_ITS ---
EXAMINATION: KNEE X-RAY CLINICAL INFORMATION: Pain COMPARISON: Previous x-ray most recent December 2020 TECHNIQUE: Standing AP view of both knees and lateral and sunrise view of the right knee FINDINGS: Right: There is a right knee replacement in satisfactory position. No fracture, dislocation or x-ray evidence of loosening is seen. There is no joint effusion. AP view of the left knee demonstrates a left knee replacement in satisfactory position. XR/XR knee RT 2V IMPRESSION: Satisfactory appearance of right knee replacement. Left knee replacement.
== END 2021-10-14 08:20 | disposition home or self-care (01) ==
LOC: HO.HOSX 08:19
PROVIDERS: Visit Provider Orthopaedic Surgery
DX: Z96.651 Presence of right artificial knee joint (principal)
CPT/HCPCS: 73560; 73565; 99212

== ENCOUNTER → 2025-01-17 08:24 | Outpatient (RCR) | payer MEDICARE, SELFPAY ==
--- NOTE | 2020-06-28 16:57 | MHC.PT.EP ---
[facility] [place] Office [place] Office [place] Office [address] Wayne Cueva [address] [phone] F: [phone] F: [phone] F: [phone] F: [phone] Physical Therapy Plan of Care Date of Evaluation: 06/28/20 Date of Surgery: Diagnosis: Primary OA R knee. Assessment: Pt is a 64 y/o female referred to PT for primary OA of R knee who presents with signs and Sx consistent with Dx resulting in decreased tolerance and ability for ambulating and standing for duration, performing squatting activities, kneeling, and descending stairs secondary to decreased R knee ROM, decreased hip and R knee strength, increased R LE tissue tension, Hx of OA, gait abnormality and pain. Pt is deemed an appropriate candidate to receive skilled PT services to address her physical limitations, improve er function and provide prehab for potential future TKR. Frequency and Duration: The patient will be seen 2x/wk x 5 wks. Short Term Goals: In 1 week: initiate HEP with evidence of compliance. In 3 weeks: 0 degrees knee extension achieved; initial: + 5 degrees flexion (L 0 degrees) Chcf Goals: In 5 weeks: I with HEP for self management/ prehab. In 5 weeks: Pt will be able to ambulate x 2 blocks with no difficulty; initial: quite a bit of difficulty (LEFS) In 5 weeks: improve R knee extension MMT to > 4+/5; initial 4/5 with apprehension. Treatment Plan: Modalities to reduce pain, spasms and effusion. Manual therapy to restore motion and function. Therapeutic exercise to improve strength and flexibility. Neuromuscular re-education for posture and balance. Therapeutic activities to return to functional activities of daily living. Please sign and return to therapist. Thank you for your referral.
--- NOTE | 2020-08-16 10:57 | MHC.PT.DC ---
[facility] [place] Office [place] Office [place] Office [address] Wayne Cueva [address] [phone] F: [phone] F: [phone] F: [phone] F: [phone] Physical Therapy Discharge Report Diagnosis: Primary OA R knee. Date of Surgery: Date of Evaluation: 06/28/20 Date of Discharge: Treatments to Date: 8 Cancellations to Date: 0 No Shows to Date: 0 Discharge Status: Achieved Goals Independent with HEP Discharge Summary: Sarah has been an active participant in her therapy in and out of the clinic. She has become I with her home program for TKR prehab. Sarah and PT is in agreement with DC at this time. Electronically signed by: Nahum Woods PT. Please sign and return to therapist. Thank you for your referral.
== END | disposition home or self-care (01) ==
LOC: HO.PTCHIC 06-28 12:52
PROVIDERS: PCP Internal Medicine; Visit Provider Orthopaedic Surgery
DX: M17.11 Unilateral primary osteoarthritis, right knee (principal)
CPT/HCPCS: 97110; 97161